=== PATIENT | female | born 1970 | race Caucasian/White ===

== ENCOUNTER 2018-08-17 14:11 | Emergency (ER) | payer BC, MEDICAID ==
[~2018-08-17] VITALS: Ht 172.7 cm; Wt 74.0 kg
[~2018-08-17 14:11] MED LIST: ALPR-623 PO; CITA20TA19 PO; COU1T PO; LISI-600 PO; OXYC-147 PO; SYN0.0125T PO
[2018-08-17 14:23] VITALS: BP 141/87
[2018-08-17] MEDS ORDERED: LIDOCAINE 5% OINTMENT 35GM TP ONE (15:10)
== END 2018-08-17 15:55 | disposition home or self-care (01) ==
LOC: ER 14:12
DX: T65.891A Toxic effect of other specified substances, accidental (unintentional), initial encounter (principal); T22.411A Corrosion of unspecified degree of right forearm, initial encounter; T22.412A Corrosion of unspecified degree of left forearm, initial encounter; T23.451A Corrosion of unspecified degree of right palm, initial encounter; T23.452A Corrosion of unspecified degree of left palm, initial encounter; S50.812A Abrasion of left forearm, initial encounter; S50.811A Abrasion of right forearm, initial encounter; I10 Essential (primary) hypertension; Z88.0 Allergy status to penicillin; Z79.899 Other long term (current) drug therapy; Z79.02 Long term (current) use of antithrombotics/antiplatelets; Y93.E9 Activity, other interior property and clothing maintenance; Y92.89 Other specified places as the place of occurrence of the external cause; Y99.8 Other external cause status
CPT/HCPCS: 99282

== ENCOUNTER 2023-04-27 07:14 | Emergency (ER) | payer BC ==
[~2023-04-27] VITALS: Ht 172.7 cm; Wt 71.2 kg
[~2023-04-27 07:14] MED LIST changes: -LISI-600 PO; +LISI20TA28 PO
[2023-04-27 08:01] LABS: BASOPHILS # (AUTO) 0.1 X10'3 (0-0.2); BASOPHILS % (AUTO) 0.9 % (0-1); EOSINOPHILS # (AUTO) 0.2 X10'3 (0-0.9); EOSINOPHILS % (AUTO) 2.6 % (0-6); HEMATOCRIT 39.9 % (35.0-45.0); HEMOGLOBIN 12.7 g/dl (12.0-16.0); LYMPHOCYTES % (AUTO) 24.9 % (21-51); MEAN CORPUSCULAR HEMOGLOBIN 24.8 PG (27.0-31.0); MEAN CORPUSCULAR HGB CONC 31.9 g/dL (33.0-36.5); MEAN CORPUSCULAR VOLUME 77.7 FL (78-98); MEAN PLATELET VOLUME 7.2 FL (7.4-10.4); MONOCYTES # (AUTO) 0.5 X10'3 (0-0.9); MONOCYTES % (AUTO) 6.7 % (2-12); NEUTROPHILS # (AUTO) 5.3 X10'3 (1.8-7.7); NEUTROPHILS % (AUTO) 64.9 % (42-75); PLATELET COUNT 382 X10'3 (140-440); RED BLOOD COUNT 5.13 X10'6 (4.20-5.60); RED CELL DISTRIBUTION WIDTH 18.3 % (11.5-14.5); WHITE BLOOD COUNT 8.1 X10'3 (4.5-11.0)
[2023-04-27] MEDS ORDERED: HYDROcodone/acetaminophen 10/325mg tab PO ONE (09:00)
[2023-04-27 09:09] LABS: ALANINE AMINOTRANSFERASE 24 U/L (12-78); ALBUMIN 3.1 G/DL (3.4-5.0); ALBUMIN/GLOBULIN RATIO 0.8 (1.1-1.5); ALKALINE PHOSPHATASE 63 IU/L (46-116); ANION GAP 10 (8-16); ASPARTATE AMINO TRANSFERASE 23 U/L (10-37); BILIRUBIN,TOTAL 0.4 MG/DL (0.1-1.0); BLOOD UREA NITROGEN 8 MG/DL (7-18); BUN/CREATININE RATIO 11.8 (10.0-20.0); CALCIUM 8.6 MG/DL (8.5-10.1); CHLORIDE 105 MMOL/L (99-107); CREATININE 0.68 MG/DL (0.40-0.90); GLUCOSE 79 MG/DL (70-104); POTASSIUM 4.3 MMOL/L (3.5-5.1); SODIUM 143 MMOL/L (135-145); TOTAL CARBON DIOXIDE 28.4 MMOL/L (24-32); TOTAL PROTEIN 6.8 G/DL (6.4-8.2); eGFR > 90 ML/MIN
[2023-04-27] MEDS ORDERED: APIX5TAB3 PO (09:43)
[2023-04-27] MEDS ORDERED: HYDR-3973 PO (09:48)
[2023-04-27 09:49] VITALS: BP 145/97
== END 2023-04-27 09:52 | disposition home or self-care (01) ==
LOC: ER 07:15
DX: I82.561 Chronic embolism and thrombosis of right calf muscular vein (principal); I10 Essential (primary) hypertension; E03.9 Hypothyroidism, unspecified; Z79.01 Long term (current) use of anticoagulants; Z88.0 Allergy status to penicillin; Z79.2 Long term (current) use of antibiotics; Z79.899 Other long term (current) drug therapy
CPT/HCPCS: 36415; 80053; 85025; 93971; 99284

== ENCOUNTER 2024-10-26 00:07 | Emergency (ER) | payer BC ==
[~2024-10-26] VITALS: Ht 172.7 cm; Wt 87.4 kg
[~2024-10-26 00:07] MED LIST changes: +APIX5TAB3 PO
[2024-10-26 00:17] VITALS: BP 157/89; PULSE 87; TEMP 98.4; O2SAT 95
[2024-10-26] MEDS ORDERED: HYDR-3973 PO (01:21)
[2024-10-26 01:53] VITALS: RESP 18
[2024-10-26] MEDS: ketorolac trometh 15mg/ml vial 15 MG/ML ML IM ONE (01:53)
== END 2024-10-26 01:59 | disposition home or self-care (01) ==
LOC: ER 00:09
DX: S42.021A Displaced fracture of shaft of right clavicle, initial encounter for closed fracture (principal); I10 Essential (primary) hypertension; Z86.718 Personal history of other venous thrombosis and embolism; Z88.0 Allergy status to penicillin; W01.0XXA Fall on same level from slipping, tripping and stumbling without subsequent striking against object, initial encounter; Y93.89 Activity, other specified; Y92.89 Other specified places as the place of occurrence of the external cause; Y99.8 Other external cause status
CPT/HCPCS: 73030; 96372; 99283; J1885; A4565